=== PATIENT | male | born 1955 | race Caucasian/White ===

== ENCOUNTER 2016-11-29 19:00 | Emergency (ER) | payer SELFPAY ==
--- NOTE | 2016-11-29 21:32 | RAD ---
INDICATION: Headaches COMPARISON: None TECHNIQUE: Noncontrast axial source images were acquired from the skull base to the vertex. FINDINGS: Ventricles/sulci: The ventricles and cisterns are normal in size and configuration for age. Brain parenchyma: There is no focal parenchymal finding, evidence of intracranial mass, or intracranial mass effect. Intracranial hemorrhage:None. Extra-axial spaces: There are no abnormal extra axial fluid collections or evidence of extra-axial mass. Calvarium: There is no calvarial fracture or other calvarial abnormality. Scalp: There is no evidence of scalp or extracalvarial soft tissue abnormality. Paranasal sinuses/mastoid: The paranasal sinuses and mastoid air cells are clear. Other: None. IMPRESSION: No acute intracranial findings.
--- NOTE | 2016-11-29 21:39 | RAD ---
INDICATION: Right flank pain COMPARISON: None TECHNIQUE: Noncontrast axial source images were acquired from the level hemidiaphragms to the symphysis pubis as part of CT imaging for renal stone. Lung bases: There are emphysematous changes with mild linear changes in both lung bases most consistent with scarring.. Liver: The liver is normal in size. Noncontrast imaging shows no evidence of a hepatic mass or ductal dilatation. Gallbladder: There are no calcified gallstones. There is no evidence of wall thickening or pericholecystic fluid.. Spleen: The spleen is normal in size. The noncontrast CT appearance is normal. Pancreas: Noncontrast imaging shows no pancreatic mass or ductal dilitation. Adrenal glands: No masses are identified. Kidneys/Bladder: There is no evidence of nephrolithiasis or CT evidence of hydronephrosis. Noncontrast imaging shows no evidence of a renal mass. The bladder appears mildly trabeculated. Adenopathy: There is no evidence of intraperitoneal or retroperitoneal adenopathy. Evaluation is limited without oral contrast. Fluid collections: There are no free or localized fluid collections. Vessels: There are atherosclerotic changes of the aorta and iliac vessels. There is mild fusiform dilatation of the infrarenal abdominal aorta at the level of the bifurcation. The IVC appears normal Pelvic organs: The prostate is enlarged GI tract: Evaluation of the bowel is limited without oral contrast. The upper GI tract is unremarkable. There is moderate stool throughout the colon. The appendix is not identified. There is no inflammatory change in the periappendiceal region. Soft tissues: No soft tissue abnormalities of the extraperitoneal abdomen or pelvis are identified. Osseous structures: There are no acute osseous findings. IMPRESSION: 1. No CT evidence of urolithiasis. 2. No mass or inflammatory change. 3. BPH
[2016-11-29 21:44] LABS: Urine Bacteria Absent (Absent); Urine Bilirubin Negative (Negative); Urine Glucose 3+(>=500 mg/dL) (Negative); Urine Nitrite Negative (Negative)
[2016-11-29 21:47] LABS: Hematocrit 44 % (42-52); Hemoglobin 14.9 g/dl (14.0-18.0); Mean Corpuscular HGB Conc 34 g/dl (31-36); Mean Corpuscular Hemoglobin 30 pg (27-31); Mean Corpuscular Volume 90 fL (80-94); Mean Platelet Volume 8 um3 (7.4-10.4); Red Blood Count 4.91 10^6/ul (4.0-5.4); Red Cell Distribution Width 13 % (10.5-15); White Blood Count 8.6 10^3/ul (3.5-10.8)
[2016-11-29 21:53] LABS: Albumin 3.9 g/dL (3.2-5.2); C Reactive Protein 1.17 mg/L (< 5.00); EGFR African American 92.3 (>60); EGFR Non-African American 71.8 (>60); Globulin 2.6 g/dL (2-4); Potassium 3.9 mmol/L (3.5-5.0); Total Bilirubin 0.3 mg/dL (0.2-1.0); Total Protein 6.5 g/dL (6.4-8.9)
[2016-11-30 00:46] VITALS: BP 158/92
--- NOTE | 2016-11-30 20:01 | ED ---
Peterson Matos Billy, scribed for Trsiten Fox MD on 11/29/16 at 2017 . GI/ HPI - HPI Summary HPI Summary: Patient is a 61 year-old male coming to [facility] for evaluation of right-sided flank pain. He states that he has had dull, intermittent pain for 4 weeks, but the pain became worse at 1830 tonight. At the time when the pain worsened, he became flushed and could not stand secondary to pain. Pain occasionally radiates to the groin and is unchanged with movement. Patient took 500mg acetaminophen without improvement. Patient denies any changes in bladder/bowel patterns or UTI symptoms. He has a frontal headache at this time, pain severity 3/10. He states that he is not normally prone to headaches, so this is quite unusual for him. - History of Current Complaint Chief Complaint: EDFlankPain Time Seen by Provider: 11/29/16 19:57 Stated Complaint: FLANK PAIN,HEADACHE,DIZZINESS Hx Obtained From: Patient Onset/Duration: Started Weeks Ago - 4 weeks, Worse Since - 183 Timing: Constant - since 183, Intermittent - for 1 month Severity: Moderate Current Severity: Moderate Pain Intensity: 3 Location of Pain: Flank Pain Radiates to: Inguinal Associated Signs and Symptoms: Negative: Hematuria, Dysuria Aggravating Factor(s): Nothing Alleviating Factor(s): Nothing - Allergy/Home Medications Allergies/Adverse Reactions: Allergies Allergy/AdvReac Type Severity Reaction Status Date / Time Ciprofloxacin [From Cipro] Allergy Severe Fever Verified 06/16/14 18:34 PMH/Surg Hx/FS Hx/Imm Hx Cardiovascular History: Reports: Hx Hypercholesterolemia, Hx Hypertension, Hx Myocardial Infarction GI History: Reports: Hx Gastroesophageal Reflux Disease History: Denies: Hx Kidney Stones Neurological History: Reports: Hx Seizures Psychiatric History: Reports: Hx Anxiety, Hx Depression Infectious Disease History: No Infectious Disease History: Denies: Traveled Outside the [place] in Last 30 Days - Family History Known Family History: Positive: Cardiac Disease - Social History Alcohol Use: None Substance Use Type: Reports: None Smoking Status (MU): Former Smoker Review of Systems Negative: Fever, Chills Positive: flank pain. Negative: dysuria, frequency, urgency Positive: Headache All Other Systems Reviewed And Are Negative: Yes Physical Exam - Summary Physical Exam Summary: Constitutional: Well-developed, Well-nourished, Alert. (-) Distressed Skin: Warm, Dry HENT: Normocephalic; Atraumatic Eyes: Conjunctiva normal Neck: Musculoskeletal ROM normal neck. (-) JVD, (-) Stridor, (-) Tracheal deviation Cardio: Rhythm regular, rate normal, Heart sounds normal; Intact distal pulses; The pedal pulses are 2+ and symmetric. Radial pulses are 2+ and symmetric. (-) Murmur Pulmonary/Chest wall: Effort normal. (-) Respiratory distress, (-) Wheezes, (-) Rales Abd: Soft, (-) Distension, (-) Guarding, (-) Rebound. Mild right-sided CVA tenderness. Otherwise, abdomen nontender. Musculoskeletal: (-) Edema Lymph: (-) Cervical adenopathy Neuro: Alert, Oriented x3 Psych: Mood and affect Normal Triage Information Reviewed: Yes Vital Signs On Initial Exam: Initial Vitals Temp Pulse Resp BP Pulse Ox 97.7 F 82 20 166/105 100 11/29/16 19:23 11/29/16 19:23 11/29/16 19:23 11/29/16 19:23 11/29/16 19:23 Vital Signs Reviewed: Yes Diagnostics - Vital Signs Vital Signs Temp Pulse Resp BP Pulse Ox 11/29/16 20:04 98.3 F 66 16 164/86 97 11/29/16 19:23 97.7 F 82 20 166/105 100 - Laboratory Lab Results: Lab Results 11/29/16 11/29/16 11/29/16 Range/Units 21:00 21:00 21:00 WBC 8.6 (3.5-10.8) 10^3/ul RBC 4.91 (4.0-5.4) 10^6/ul Hgb 14.9 (14.0-18.0) g/dl Hct 44 (42-52) % MCV 90 (80-94) fL MCH 30 (27-31) pg MCHC 34 (31-36) g/dl RDW 13 (10.5-15) % Plt Count 224 (150-450) 10^3/ul MPV 8 (7.4-10.4) um3 Neut % (Auto) 72.6 (38-83) % Lymph % (Auto) 17.4 L (25-47) % [place] % (Auto) 6.0 (1-9) % Eos % (Auto) 3.0 (0-6) % Baso % (Auto) 1.0 (0-2) % Absolute Neuts (auto) 6.2 (1.5-7.7) 10^3/ul Absolute Lymphs (auto) 1.5 (1.0-4.8) 10^3/ul Absolute Monos (auto) 0.5 (0-0.8) 10^3/ul Absolute Eos (auto) 0.3 (0-0.6) 10^3/ul Absolute Basos (auto) 0.1 (0-0.2) 10^3/ul Absolute Nucleated RBC 0.01 10^3/ul Nucleated RBC % 0.1 Sodium 136 (133-145) mmol/L Potassium 3.9 (3.5-5.0) mmol/L Chloride 105 (101-111) mmol/L Carbon Dioxide 27 (22-32) mmol/L Anion Gap 4 (2-11) mmol/L BUN 22 (6-24) mg/dL Creatinine 1.05 (0.67-1.17) mg/dL Est GFR ( Amer) 92.3 (>60) Est GFR (Non-Af Amer) 71.8 (>60) BUN/Creatinine Ratio 21.0 H (8-20) Glucose 94 (70-100) mg/dL Lactic Acid (0.5-2.0) mmol/L Calcium 9.0 (8.6-10.3) mg/dL Total Bilirubin 0.30 (0.2-1.0) mg/dL AST 24 (13-39) U/L ALT 23 (7-52) U/L Alkaline Phosphatase 49 (34-104) U/L C-Reactive Protein 1.17 (< 5.00) mg/L Total Protein 6.5 (6.4-8.9) g/dL Albumin 3.9 (3.2-5.2) g/dL Globulin 2.6 (2-4) g/dL Albumin/Globulin Ratio 1.5 (1-3) Lipase 37 (11.0-82.0) U/L Urine Color Yellow Urine Appearance Clear Urine pH 6.0 (5-9) Ur Specific [place] 1.021 (1.010-1.030) Urine Protein Negative (Negative) Urine Ketones Negative (Negative) Urine Blood 2+ H (Negative) Urine Nitrate Negative (Negative) Urine Bilirubin Negative (Negative) Urine Urobilinogen Negative (Negative) Ur Leukocyte Esterase Negative (Negative) Urine WBC (Auto) Trace(0-5/hpf) (Absent) Urine RBC (Auto) 3+(>10/hpf) H (Absent) Urine Bacteria Absent (Absent) Urine Glucose 3+(>=500 mg/dl) H (Negative) Urine Ascorbic Acid * H (Negative) 11/29/16 Range/Units 21:00 WBC (3.5-10.8) 10^3/ul RBC (4.0-5.4) 10^6/ul Hgb (14.0-18.0) g/dl Hct (42-52) % MCV (80-94) fL MCH (27-31) pg MCHC (31-36) g/dl RDW (10.5-15) % Plt Count (150-450) 10^3/ul MPV (7.4-10.4) um3 Neut % (Auto) (38-83) % Lymph % (Auto) (25-47) % [place] % (Auto) (1-9) % Eos % (Auto) (0-6) % Baso % (Auto) (0-2) % Absolute Neuts (auto) (1.5-7.7) 10^3/ul Absolute Lymphs (auto) (1.0-4.8) 10^3/ul Absolute Monos (auto) (0-0.8) 10^3/ul Absolute Eos (auto) (0-0.6) 10^3/ul Absolute Basos (auto) (0-0.2) 10^3/ul Absolute Nucleated RBC 10^3/ul Nucleated RBC % Sodium (133-145) mmol/L Potassium (3.5-5.0) mmol/L Chloride (101-111) mmol/L Carbon Dioxide (22-32) mmol/L Anion Gap (2-11) mmol/L BUN (6-24) mg/dL Creatinine (0.67-1.17) mg/dL Est GFR ( Amer) (>60) Est GFR (Non-Af Amer) (>60) BUN/Creatinine Ratio (8-20) Glucose (70-100) mg/dL Lactic Acid 1.1 (0.5-2.0) mmol/L Calcium (8.6-10.3) mg/dL Total Bilirubin (0.2-1.0) mg/dL AST (13-39) U/L ALT (7-52) U/L Alkaline Phosphatase (34-104) U/L C-Reactive Protein (< 5.00) mg/L Total Protein (6.4-8.9) g/dL Albumin (3.2-5.2) g/dL Globulin (2-4) g/dL Albumin/Globulin Ratio (1-3) Lipase (11.0-82.0) U/L Urine Color Urine Appearance Urine pH (5-9) Ur Specific [place] (1.010-1.030) Urine Protein (Negative) Urine Ketones (Negative) Urine Blood (Negative) Urine Nitrate (Negative) Urine Bilirubin (Negative) Urine Urobilinogen (Negative) Ur Leukocyte Esterase (Negative) Urine WBC (Auto) (Absent) Urine RBC (Auto) (Absent) Urine Bacteria (Absent) Urine Glucose (Negative) Urine Ascorbic Acid (Negative) Result Diagrams: 11/29/16 21:00 11/29/16 21:00 Lab Statement: Any lab studies that have been ordered have been reviewed, and results considered in the medical decision making process. - CT abd/pel w/o CT Interpretation Completed By: Radiologist - 1. No CT evidence of urolithiasis. 2. No mass or inflammatory change. 3. BPH brain w/o CT Interpretation Completed By: Radiologist - No acute findings. Re-Evaluation - Re-Evaluation First Eval Re-Evaluation Time: 23:35 Change: Improved Comment: Labs and imaging reviewed. Pain has resolved, he urinated a small stone into a strainer. GIGU Course/Dx - Course Assessment/Plan: 61 y/o male coming to the ED for evaluation of a month of right -sided flank pain and headache. CT of the abd/pel and CT of the brain were reviewed as read by the radiologist. Labs were reviewed. UA shows 3+ glucose. In the ED, the patient urinated into a strainer and passed a stone. Patient will be discharged to follow up with PCP. - Diagnoses Provider Diagnoses: Glucosuria, Ureteral stone, Medication refill, Flank pain Discharge - Discharge Plan Condition: Stable Disposition: HOME Prescriptions: Atorvastatin* [Lipitor 10 MG*] 10 mg PO DAILY #30 tab Lisinopril TAB* [Prinivil TAB 10 MG*] 20 mg PO DAILY #60 tab Omeprazole CAP* [Prilosec CAP* 20 MG] 40 mg PO DAILY #60 cap. Sertraline* [Zoloft*] 50 mg PO DAILY #30 tab traMADol TAB* [Ultram*] 25 mg PO Q6HR PRN #12 tab MDD 4 PRN Reason: Pain Scale 6-10 Patient Education Materials: Flank Pain (ED), Ureteral Stones (ED) Referrals: [facility] [place] [facility] [Outside] The documentation as recorded by the Peterson black Billy accurately reflects the service I personally performed and the decisions made by me, Tristen Fox MD.
== END 2016-11-30 00:34 | disposition home or self-care (01) ==
LOC: ED 19:00
DX: R81 Glycosuria (principal); N20.1 Calculus of ureter; Z76.0 Encounter for issue of repeat prescription; R10.84 Generalized abdominal pain; R51 Headache; Z87.891 Personal history of nicotine dependence
CPT/HCPCS: 36415; 70450; 74176; 80053; 81003; 81015; 83605; 83690; 85025; 86140; 99282